=== PATIENT | female | born 1995 | race Two or more races ===

== ENCOUNTER 2021-01-05 14:30 | Outpatient (CLI) | payer SELFPAY | END 2021-01-05 23:59 | disposition home or self-care (01) | LOC: WOU 14:30 | PROVIDERS: ATTEND Surgery | DX: L90.5 Scar conditions and fibrosis of skin (principal); Z87.76 Personal history of (corrected) congenital malformations of integument, limbs and musculoskeletal system | CPT/HCPCS: 73140-TC; G0463 ==